=== PATIENT | male | born 1975 | race Caucasian/White ===

== ENCOUNTER → 2017-05-15 | Outpatient (CLI) | payer OTHER ==
[2012-12-30 15:30] VITALS: BP 135/82
[~2017-05-15] MED LIST: NORCO 325 MG-51 TA1 PO; PHENTERMINE30 MG PO
[2017-05-15 09:09] LABS: URINE APPEARANCE CLEAR; URINE BILIRUBIN NEGATIVE (NEGATIVE); URINE BLOOD TRACE (NEGATIVE); URINE COLOR YELLOW; URINE GLUCOSE NEGATIVE (NEGATIVE); URINE KETONE NEGATIVE (NEGATIVE); URINE LEUKOCYTE ESTERASE NEGATIVE (NEGATIVE); URINE NITRATE NEGATIVE (NEGATIVE); URINE PROTEIN(semi-quant) NEGATIVE (NEGATIVE); URINE UROBILINOGEN NORMAL (NORMAL); URINE WBC 0-1 /hpf (0-3)
== END ==
LOC: LAB 08:34
PROVIDERS: Nurse Practitioner Family
DX: R10.32 Left lower quadrant pain (principal)

== ENCOUNTER → 2017-05-16 | Outpatient (CLI) | payer OTHER ==
[2012-12-30 15:30] VITALS: BP 135/82
== END ==
LOC: RAD 12:43
DX: N50.812 Left testicular pain (principal); R10.32 Left lower quadrant pain

== ENCOUNTER → 2017-10-30 | Outpatient (CLI) | payer OTHER ==
[2012-12-30 15:30] VITALS: BP 135/82
[2017-10-30 08:09] LABS: EOS # 0.3 (0.04-0.40); EOS % 3.5 % (0.0-4.0); HEMATOCRIT 43.4 % (42.0-52.0); HEMOGLOBIN 14.3 g/dL (13.5-18.0); LYMPH# 1.5 (1.50-4.00); MEAN CELL VOLUME 90 fl (78-100); MEAN CORPUSCULAR HEMOGLOBIN 30 pg (27-31); MEAN CORPUSCULAR HGB CONC 33 g/dL (33-37); MEAN PLATELET VOLUME 11.3 fl (7.4-10.4); MONO # 0.8 (0.20-0.80); PLATELET COUNT 173 K/mm3 (130-400); RED BLOOD COUNT 4.82 M/mm3 (4.20-5.60); RED CELL DISTRIBUTION WIDTH 12.7 % (11.5-14.5); WHITE BLOOD COUNT 7.7 K/mm3 (4.8-10.8)
[2017-10-30 09:05] LABS: BUN/CREATININE RATIO 11.3 (6.0-26.0); CALCIUM 9.1 mg/dL (8.4-10.2); POTASSIUM 4.1 mmol/L (3.6-5.0); TOTAL BILIRUBIN 0.5 mg/dL (0.2-1.3); TOTAL PROTEIN 7.5 g/dL (6.3-8.2)
== END ==
LOC: LAB 07:53
PROVIDERS: Nurse Practitioner Family
DX: I10 Essential (primary) hypertension (principal); E78.2 Mixed hyperlipidemia; R73.01 Impaired fasting glucose; Z88.0 Allergy status to penicillin

== ENCOUNTER → 2018-02-22 | Outpatient (CLI) | payer OTHER ==
[2012-12-30 15:30] VITALS: BP 135/82
== END ==
LOC: LAB 11:50
DX: M10.9 Gout, unspecified (principal)

== ENCOUNTER → 2018-12-11 | Outpatient (CLI) | payer OTHER ==
[2012-12-30 15:30] VITALS: BP 135/82
[2018-12-11 08:54] LABS: BASO # 0.1 (0.02-0.10); EOS # 0.3 (0.04-0.40); EOS % 3.4 % (0.0-4.0); HEMATOCRIT 45.4 % (42.0-52.0); HEMOGLOBIN 14.7 g/dL (13.5-18.0); LYMPH# 1.4 (1.50-4.00); MEAN CELL VOLUME 92 fl (78-100); MEAN CORPUSCULAR HEMOGLOBIN 30 pg (27-31); MEAN CORPUSCULAR HGB CONC 32 g/dL (33-37); MEAN PLATELET VOLUME 11.7 fl (7.4-10.4); MONO # 0.8 (0.20-0.80); NEU # 5.6 (1.40-6.50); PLATELET COUNT 180 K/mm3 (130-400); RED BLOOD COUNT 4.93 M/mm3 (4.20-5.60); RED CELL DISTRIBUTION WIDTH 12.9 % (11.5-14.5); WHITE BLOOD COUNT 8.2 K/mm3 (4.8-10.8)
[2018-12-11 09:10] LABS: ALBUMIN 4.1 g/dL (3.5-5.0); CALCIUM 9.7 mg/dL (8.3-10.5); POTASSIUM 4.1 mmol/L (3.5-5.1); TOTAL BILIRUBIN 0.5 mg/dL (0.2-1.2); TOTAL PROTEIN 7.3 g/dL (6.4-8.3)
== END ==
LOC: LAB 07:52
PROVIDERS: Family Medicine
DX: Z00.00 Encounter for general adult medical examination without abnormal findings (principal); M10.9 Gout, unspecified

== ENCOUNTER → 2019-12-31 | Outpatient (CLI) | payer OTHER ==
[2012-12-30 15:30] VITALS: BP 135/82
[2019-12-31 17:28] LABS: POTASSIUM 4.4 mmol/L (3.5-5.1)
== END ==
LOC: LAB 16:55
PROVIDERS: Family Medicine
DX: I10 Essential (primary) hypertension (principal); M10.9 Gout, unspecified

== ENCOUNTER → 2020-07-07 | Outpatient (CLI) | payer OTHER ==
[2012-12-30 15:30] VITALS: BP 135/82
[2020-07-07 11:15] LABS: HEMATOCRIT 45.8 % (42.0-52.0); HEMOGLOBIN 15.1 g/dL (13.5-18.0); MEAN CELL VOLUME 90 fl (78-100); MEAN CORPUSCULAR HEMOGLOBIN 30 pg (27-31); MEAN CORPUSCULAR HGB CONC 33 g/dL (33-37); MEAN PLATELET VOLUME 10.6 fl (7.4-10.4); PLATELET COUNT 224 K/mm3 (130-400); RED BLOOD COUNT 5.08 M/mm3 (4.20-5.60); RED CELL DISTRIBUTION WIDTH 12.3 % (11.5-14.5); WHITE BLOOD COUNT 13.7 K/mm3 (4.8-10.8)
[2020-07-07 11:24] LABS: ALBUMIN 4.5 g/dL (3.5-5.0); POTASSIUM 4.6 mmol/L (3.5-5.1)
[2020-07-07 11:25] LABS: CALCIUM 9.7 mg/dL (8.3-10.5)
[2020-07-07 11:26] LABS: TOTAL PROTEIN 8.3 g/dL (6.4-8.3)
[2020-07-07 11:28] LABS: TOTAL BILIRUBIN 0.6 mg/dL (0.2-1.2)
[2020-07-07 11:35] LABS: LYMPHOCYTE 15 % (20-51); MONOCYTE 8 % (3-10); NEUTROPHILS 74 % (42-75)
[2020-07-07 12:21] LABS: ERYTHROCYTE SEDIMENTATION RATE 31 mm/hr (0-15)
== END ==
LOC: RAD 11:00
PROVIDERS: Family Medicine
DX: M25.471 Effusion, right ankle (principal); Z87.39 Personal history of other diseases of the musculoskeletal system and connective tissue

== ENCOUNTER → 2021-06-06 | Outpatient (CLI) | payer OTHER ==
[2021-06-06 12:12] LABS: POTASSIUM 4.4 mmol/L (3.5-5.1)
== END ==
LOC: LAB 11:46
PROVIDERS: Family Medicine
DX: M10.072 Idiopathic gout, left ankle and foot (principal); Z87.39 Personal history of other diseases of the musculoskeletal system and connective tissue

== ENCOUNTER → 2021-06-10 | Outpatient (CLI) | payer OTHER ==
[2021-06-10 07:45] LABS: POTASSIUM 3.9 mmol/L (3.5-5.1)
[2021-06-10 07:46] LABS: CALCIUM 9.5 mg/dL (8.3-10.5)
== END ==
LOC: LAB 07:26 → RAD 07:26
PROVIDERS: Family Medicine
DX: I10 Essential (primary) hypertension (principal); M10.072 Idiopathic gout, left ankle and foot; Z87.39 Personal history of other diseases of the musculoskeletal system and connective tissue

== ENCOUNTER → 2021-07-04 | Outpatient (CLI) | payer OTHER ==
[2021-07-04 07:56] LABS: POTASSIUM 4.2 mmol/L (3.5-5.1)
[2021-07-04 07:57] LABS: CALCIUM 9.6 mg/dL (8.3-10.5)
== END ==
LOC: LAB 07:31
PROVIDERS: Family Medicine
DX: M10.072 Idiopathic gout, left ankle and foot (principal); I10 Essential (primary) hypertension; Z87.39 Personal history of other diseases of the musculoskeletal system and connective tissue

== ENCOUNTER → 2021-07-25 | Outpatient (CLI) | payer OTHER | LOC: LAB 17:08 | DX: M10.072 Idiopathic gout, left ankle and foot (principal); I10 Essential (primary) hypertension; Z87.39 Personal history of other diseases of the musculoskeletal system and connective tissue ==

== ENCOUNTER → 2022-03-02 | Outpatient (CLI) | payer OTHER ==
[2022-03-02 18:57] LABS: ALBUMIN 4.4 g/dL (3.5-5.0); POTASSIUM 4.3 mmol/L (3.5-5.1)
[2022-03-02 18:58] LABS: CALCIUM 9.5 mg/dL (8.3-10.5)
[2022-03-02 18:59] LABS: TOTAL PROTEIN 7.9 g/dL (6.4-8.3)
[2022-03-02 19:01] LABS: TOTAL BILIRUBIN 0.5 mg/dL (0.2-1.2)
== END ==
LOC: LAB 18:08
PROVIDERS: Nurse Practitioner Family
DX: M10.9 Gout, unspecified (principal)